=== PATIENT | female | born 1950 | race Two or more races ===

== ENCOUNTER → 2019-05-18 | Emergency (ER) | payer OTHER ==
[~2019-05-18] VITALS: Ht 165.1 cm; Wt 108.9 kg
[~2019-05-18] MED LIST: AMLO10TA13 PO; ASPI-231 PO; ATOR10TA52 PO; FAM20T PO; FENO160T8 PO; GABA-339 PO; HYDR-4833 PO; INSLISPI SC; LEVO75TA50 PO; LISI40TA PO; METF-372 PO
[2019-05-18 04:01] LABS: Basophils # (auto) 0.1 10 ^3/uL (0-0.2); Basophils % (auto) 0.6 % (0.0-2.0); Eosinophils # (auto) 0.3 10 ^3/uL (0-0.8); Eosinophils % (auto) 2.5 % (0.0-7.0); Hematocrit 41.3 % (36.0-46.0); Hemoglobin 13.9 g/dL (12.2-16.2); Lymphocytes # (auto) 1.7 10 ^3/uL (0.4-5.4); Lymphocytes % (auto) 17.2 % (10.0-50.0); Mean Corpuscular Hemoglobin 29.6 pg (28.0-32.0); Mean Corpuscular Hgb Conc. 33.7 g/dL (32.0-36.0); Monocytes # (auto) 0.8 10 ^3/uL (0-1.3); Monocytes % (auto) 7.7 % (0.0-12.0); Neutrophils # (auto) 7.3 10 ^3/uL (1.6-8.6); Platelet Count (auto) 264 10^3/uL (140-450); Red Blood Cells 4.69 10^6/uL (4.0-5.20); Red Cell Distribution Width 14.6 % (11.8-14.3); White Blood Cell 10.1 10^3/uL (4.4-10.8)
[2019-05-18 04:17] LABS: INR 1.01 (0.9-1.15); Partial Thromboplastin Time 27.9 sec (23.64-32.05)
[2019-05-18 04:18] LABS: Albumin 3.3 g/dL (3.4-5.0); Anion Gap 5 (5-15); Blood Urea Nitrogen 19 mg/dL (7-18); Calcium 8.9 mg/dL (8.5-10.1); Carbon Dioxide 25 mmol/L (21-32); Chloride 108 mmol/L (98-107); Glucose 228 mg/dL (74-106); Magnesium 1.5 mg/dL (1.6-2.6); Potassium 4.1 mmol/L (3.5-5.1); Sodium 138 mmol/L (136-145)
[2019-05-18 04:20] LABS: BUN/Creatinine Ratio 28.8; GFR African American 115 mL/min; GFR Non-African American 95 mL/min
[2019-05-18 04:25] LABS: Alanine Aminotransferase 47 U/L (13-56); Alkaline Phosphatase 97 U/L (45-117); Aspartate Aminotransferase 32 U/L (15-37); Bilirubin, Total 0.3 mg/dL (0.2-1.0); Total Protein 7.1 g/dL (6.4-8.2)
[2019-05-18 04:43] LABS: Urine Bacteria FEW /hpf (None Seen); Urine Blood Negative /uL (Negative); Urine Specific Gravity 1.012 (1.001-1.035); Urine WBC 9 /hpf (0 - 5)
[2019-05-18 05:34] VITALS: BP 158/78
== END | disposition home or self-care (01) ==
LOC: ER 02:35
DX: I10 Essential (primary) hypertension (principal); E11.65 Type 2 diabetes mellitus with hyperglycemia; R00.2 Palpitations; R42 Dizziness and giddiness; Z98.61 Coronary angioplasty status; Z90.49 Acquired absence of other specified parts of digestive tract; Z88.6 Allergy status to analgesic agent; Z79.899 Other long term (current) drug therapy; Z79.82 Long term (current) use of aspirin; Z79.4 Long term (current) use of insulin
CPT/HCPCS: 36415; 71045; 80053; 81001; 83735; 83880; 84443; 84484; 85025; 85379; 85610; 85730; 93005

== ENCOUNTER 2019-07-06 06:04 | Inpatient (IN) | payer OTHER ==
[~2019-07-06] VITALS: Ht 154.9 cm; Wt 110.6 kg
[2019-07-06] MEDS ORDERED: DOPamine 1600MCG/ML D5W 250 ML IV ONE (06:16)
[2019-07-06 06:49] LABS: Basophils # (auto) 0.1 10 ^3/uL (0-0.2); Basophils % (auto) 0.5 % (0.0-2.0); Eosinophils # (auto) 0.3 10 ^3/uL (0-0.8); Eosinophils % (auto) 1.8 % (0.0-7.0); Hematocrit 41.4 % (36.0-46.0); Hemoglobin 13.9 g/dL (12.2-16.2); Lymphocytes # (auto) 2.8 10 ^3/uL (0.4-5.4); Lymphocytes % (auto) 19.3 % (10.0-50.0); Mean Corpuscular Hemoglobin 29.7 pg (28.0-32.0); Mean Corpuscular Hgb Conc. 33.5 g/dL (32.0-36.0); Mean Corpuscular Volume 88.6 fL (80.0-100.0); Monocytes # (auto) 1.1 10 ^3/uL (0-1.3); Monocytes % (auto) 7.7 % (0.0-12.0); Neutrophils # (auto) 10.1 10 ^3/uL (1.6-8.6); Neutrophils % (auto) 70.7 % (37.0-80.0); Nucleated Red Blood Cells % 0.1 %; Platelet Count (auto) 266 10^3/uL (140-450); Red Blood Cells 4.67 10^6/uL (4.0-5.20); Red Cell Distribution Width 14.4 % (11.8-14.3); White Blood Cell 14.3 10^3/uL (4.4-10.8)
[2019-07-06 06:58] LABS: Albumin 3.4 g/dL (3.4-5.0); Anion Gap 10 (5-15); Blood Urea Nitrogen 28 mg/dL (7-18); Calcium 8.5 mg/dL (8.5-10.1); Carbon Dioxide 20 mmol/L (21-32); Chloride 112 mmol/L (98-107); Glucose 322 mg/dL (74-106); Magnesium 1.9 mg/dL (1.6-2.6); Potassium 3.5 mmol/L (3.5-5.1); Sodium 142 mmol/L (136-145)
[2019-07-06 07:02] LABS: INR 1.03 (0.9-1.15); Partial Thromboplastin Time 24.9 sec (23.64-32.05)
[2019-07-06 07:04] LABS: Alanine Aminotransferase 42 U/L (13-56); Alkaline Phosphatase 93 U/L (45-117); Aspartate Aminotransferase 36 U/L (15-37); BUN/Creatinine Ratio 26.7; Bilirubin, Total 0.3 mg/dL (0.2-1.0); GFR African American 67 mL/min; GFR Non-African American 56 mL/min; Total Protein 6.9 g/dL (6.4-8.2)
[2019-07-06] MEDS ORDERED: ONDANSETRON HCL 4 MG/2 ML VIAL ONE (07:13)
[2019-07-06] MEDS ORDERED: ONDANSETRON HCL 4 MG/2 ML VIAL IV ONE (07:15)
[2019-07-06] MEDS: DOPamine 1600MCG/ML D5W 250 ML IV SCH ×2 (07:30→18:35)
[2019-07-06] MEDS ORDERED: cefTRIAXone 1GM/50ML D5W 50 ML IV ONE (07:45)
[2019-07-06] MEDS ORDERED: AZITHROMYCIN 500MG/ 250ML 250 ML IV ONE (07:45)
[2019-07-06] MEDS ORDERED: LORazepam 2MG/ML-1ML VIAL IV ONE (08:30)
[2019-07-06] MEDS ORDERED: NITROGLYCERIN 0.4 MG SL TAB SL PRN (10:45)
[2019-07-06] MEDS ORDERED: TEMAZEPAM 15 MG CAP PO PRN (11:00)
[2019-07-06] MEDS ORDERED: DEXTROSE (50%) 50ML SYRG IV PRN (11:00)
[2019-07-06] MEDS ORDERED: PROMETHAZINE HCL 25 MG/ML 1ML IV PRN (11:00)
[2019-07-06] MEDS: ACCU-CHEK COMFORT CURVE STRIP VI SCH ×3 (11:24→20:02)
[2019-07-06] MEDS: InsuLIN REG 1unit/0.01ml Soln (100units/ml) SC SCH ×3 (11:34→20:48)
[2019-07-06] MEDS: GABAPENTIN 300 MG CAP PO SCH ×2 (11:35→22:13)
[2019-07-06] MEDS ORDERED: ATORVASTATIN 20 MG TAB PO SCH (22:00)
[2019-07-06] MEDS: FAMOTIDINE 20 MG TAB PO SCH (22:13)
[2019-07-06] MEDS: traMADol HCL 50 MG TAB PO PRN (22:14)
[2019-07-06] MEDS: INSULIN LANTUS (GLARGINE) 1 /0.01ml (100units/ml) SC SCH (22:18)
[2019-07-07] VITALS (57 sets, daily range): BP systolic 105–191; BP diastolic 46–84
[2019-07-07] MEDS: ACCU-CHEK COMFORT CURVE STRIP VI SCH ×6 (00:15→21:44)
[2019-07-07] MEDS: MORPHINE SULF INJ 2 MG/ML SYRINGE 1ML IV PRN ×2 (00:33→21:46)
[2019-07-07] MEDS: ACETAMINOPHEN 500 MG TAB PO PRN ×2 (02:10)
[2019-07-07] MEDS: DOPamine 1600MCG/ML D5W 250 ML IV SCH (02:12)
[2019-07-07] MEDS: InsuLIN REG 1unit/0.01ml Soln (100units/ml) SC SCH ×6 (04:00→22:00)
[2019-07-07 04:04] LABS: Basophils # (auto) 0.1 10 ^3/uL (0-0.2); Basophils % (auto) 0.4 % (0.0-2.0); Eosinophils # (auto) 0.2 10 ^3/uL (0-0.8); Eosinophils % (auto) 1.2 % (0.0-7.0); Hematocrit 41.4 % (36.0-46.0); Hemoglobin 13.6 g/dL (12.2-16.2); Lymphocytes # (auto) 1.6 10 ^3/uL (0.4-5.4); Lymphocytes % (auto) 10.9 % (10.0-50.0); Mean Corpuscular Hgb Conc. 32.8 g/dL (32.0-36.0); Mean Corpuscular Volume 88.5 fL (80.0-100.0); Monocytes # (auto) 1.3 10 ^3/uL (0-1.3); Monocytes % (auto) 8.9 % (0.0-12.0); Neutrophils # (auto) 11.5 10 ^3/uL (1.6-8.6); Neutrophils % (auto) 78.6 % (37.0-80.0); Platelet Count (auto) 288 10^3/uL (140-450); Red Blood Cells 4.67 10^6/uL (4.0-5.20); Red Cell Distribution Width 14.6 % (11.8-14.3); White Blood Cell 14.6 10^3/uL (4.4-10.8)
[2019-07-07 04:22] LABS: Calcium 8.5 mg/dL (8.5-10.1); Potassium 3.7 mmol/L (3.5-5.1)
[2019-07-07 04:28] LABS: Albumin 3.3 g/dL (3.4-5.0); Bilirubin, Total 0.8 mg/dL (0.2-1.0); Total Protein 6.8 g/dL (6.4-8.2)
[2019-07-07 04:29] LABS: INR 1.09 (0.9-1.15); Partial Thromboplastin Time 28.5 sec (23.64-32.05)
[2019-07-07] MEDS: LEVOTHYROXINE SODIUM 25 MCG TAB PO SCH (08:23)
[2019-07-07] MEDS: INSULIN LANTUS (GLARGINE) 1 /0.01ml (100units/ml) SC SCH ×2 (09:10→22:00)
[2019-07-07] MEDS ORDERED: CLOP75TA28 PO (09:32)
[2019-07-07] MEDS: ENOXAPARIN SOD 40 MG/0.4 ML SYRINGE SC SCH (09:51)
[2019-07-07] MEDS: GABAPENTIN 300 MG CAP PO SCH ×2 (09:56→21:44)
[2019-07-07] MEDS: FAMOTIDINE 20 MG TAB PO SCH ×2 (09:56→21:44)
[2019-07-07] MEDS ORDERED: Fenofibrate 160MG TABLET PO SCH (10:00)
[2019-07-07] MEDS ORDERED: CLOPIDOGREL BISULFATE 75 MG TAB PO ONE (10:15)
[2019-07-07] MEDS ORDERED: LIDOCAINE 2%HCL (LOCAL ANESTH.) INJ 20ML MDV ONE (12:42)
[2019-07-07] MEDS ORDERED: IODIXANOL 320MG/ML 100ML BTL IV ONE (12:42)
[2019-07-07] MEDS ORDERED: HEPARIN SODIUM (PORCINE) 5000 UNITS/ML 1ML VIAL ONE (12:59)
[2019-07-07] MEDS ORDERED: VERAPAMIL 2.5MG/ML INJ 2ML VIAL IV ONE (12:59)
[2019-07-07] MEDS ORDERED: MIDAZOLAM HCL 1MG/1ML-2 ML VIAL ONE (13:01)
[2019-07-07] MEDS ORDERED: ANGIOMAX 250 MG VIAL IV ONE (13:01)
[2019-07-07] MEDS ORDERED: SODIUM CHL 0.9% 50 ML ONE (13:01)
[2019-07-07] MEDS ORDERED: fentaNYL CITRATE 100 MCG/2 ML VL ONE (13:01)
[2019-07-07] MEDS ORDERED: ASPirin 81 mg TAB PO STA (15:15)
[2019-07-07] MEDS ORDERED: ASPirin 325 MG TAB PO STA (15:25)
[2019-07-07] MEDS ORDERED: HYDR-531 PO (17:11)
[2019-07-07] MEDS ORDERED: LISI-646 PO (17:11)
[2019-07-07] MEDS ORDERED: LEVEMIR SC (17:16)
[2019-07-07] MEDS ORDERED: ERGO1CAP6 PO (17:17)
[2019-07-07] MEDS ORDERED: SEMA2INJ SC (17:26)
[2019-07-07] MEDS: traMADol HCL 50 MG TAB PO PRN (17:44)
[2019-07-07] MEDS: ATORVASTATIN 20 MG TAB PO SCH (21:43)
[2019-07-07] MEDS: DOXYCYCLINE 100MG/250ML 250 ML IV SCH (22:42)
[2019-07-08] VITALS: BP 118/52
[2019-07-08 04:00] VITALS: BP 111/56
[2019-07-08] MEDS: InsuLIN REG 1unit/0.01ml Soln (100units/ml) SC SCH ×4 (06:30→21:21)
[2019-07-08] MEDS: INSULIN LANTUS (GLARGINE) 1 /0.01ml (100units/ml) SC SCH ×2 (06:36→21:22)
[2019-07-08] MEDS: ACCU-CHEK COMFORT CURVE STRIP VI SCH ×4 (06:45→20:49)
[2019-07-08] MEDS: LEVOTHYROXINE SODIUM 25 MCG TAB PO SCH (06:45)
[2019-07-08 08:15] VITALS: BP 140/75
[2019-07-08 09:14] LABS: Urine Bacteria NONE SEEN /hpf (None Seen); Urine Blood 2+ /uL (Negative); Urine Budding Yeast MODERATE /hpf (None Seen); Urine Mucus FEW (None Seen); Urine Specific Gravity 1.026 (1.001-1.035); Urine WBC 194 /hpf (0 - 5)
[2019-07-08] MEDS: GABAPENTIN 300 MG CAP PO SCH ×2 (09:31→20:49)
[2019-07-08] MEDS: RANOLAZINE ER 500 MG TAB PO SCH ×2 (09:32→20:49)
[2019-07-08] MEDS: ENOXAPARIN SOD 40 MG/0.4 ML SYRINGE SC SCH (09:32)
[2019-07-08] MEDS: FAMOTIDINE 20 MG TAB PO SCH ×2 (09:32→20:49)
[2019-07-08] MEDS ORDERED: CLOPIDOGREL BISULFATE 75 MG TAB PO SCH (10:00)
[2019-07-08] MEDS ORDERED: ASPirin 81 mg TAB PO SCH (10:00)
[2019-07-08] MEDS: DOXYCYCLINE 100MG/250ML 250 ML IV SCH ×2 (12:14→20:50)
[2019-07-08 12:15] VITALS: BP 137/66
[2019-07-08 16:10] VITALS: BP 144/65
[2019-07-08 20:00] VITALS: BP 153/62
[2019-07-08] MEDS: ATORVASTATIN 20 MG TAB PO SCH (20:49)
[2019-07-08] MEDS: MORPHINE SULF INJ 2 MG/ML SYRINGE 1ML IV PRN (21:36)
[2019-07-09] VITALS: BP 117/49
[2019-07-09 04:00] VITALS: BP 98/62
== END 2019-07-09 04:58 | disposition short-term general hospital (02) | DRG 246 ==
LOC: ER 06:04 → EDBD 06:04 → TELE 06:05 → ICU WEST 23:47 → DOU IN ICU 07-07 18:42
PROVIDERS: ADMIT Internal Medicine; ATTEND Internal Medicine
PROC: 02HV33Z Insertion of Infusion Device into Superior Vena Cava, Percutaneous Approach (ICD-10-PCS; 2019-07-06)
PROC: 027035Z Dilation of Coronary Artery, One Artery with Two Drug-eluting Intraluminal Devices, Percutaneous Approach (ICD-10-PCS; principal; 2019-07-07)
PROC: 4A033BC Measurement of Arterial Pressure, Coronary, Percutaneous Approach (ICD-10-PCS; 2019-07-07)
PROC: 4A023N7 Measurement of Cardiac Sampling and Pressure, Left Heart, Percutaneous Approach (ICD-10-PCS; 2019-07-07)
PROC: B2111ZZ Fluoroscopy of Multiple Coronary Arteries using Low Osmolar Contrast (ICD-10-PCS; 2019-07-07)
PROC: B2151ZZ Fluoroscopy of Left Heart using Low Osmolar Contrast (ICD-10-PCS; 2019-07-07)
DX: I21.4 Non-ST elevation (NSTEMI) myocardial infarction (principal); J18.9 Pneumonia, unspecified organism; I44.2 Atrioventricular block, complete; Z68.42 Body mass index [BMI] 45.0-49.9, adult; R00.1 Bradycardia, unspecified; E66.01 Morbid (severe) obesity due to excess calories; E03.9 Hypothyroidism, unspecified; E11.65 Type 2 diabetes mellitus with hyperglycemia; E78.5 Hyperlipidemia, unspecified; I11.9 Hypertensive heart disease without heart failure; I25.10 Atherosclerotic heart disease of native coronary artery without angina pectoris; R55 Syncope and collapse; I44.7 Left bundle-branch block, unspecified; D72.829 Elevated white blood cell count, unspecified; E11.42 Type 2 diabetes mellitus with diabetic polyneuropathy; K21.9 Gastro-esophageal reflux disease without esophagitis; M81.0 Age-related osteoporosis without current pathological fracture; Z79.4 Long term (current) use of insulin; Z80.9 Family history of malignant neoplasm, unspecified; Z82.49 Family history of ischemic heart disease and other diseases of the circulatory system; Z83.3 Family history of diabetes mellitus; Z82.62 Family history of osteoporosis; Z95.0 Presence of cardiac pacemaker; Z95.5 Presence of coronary angioplasty implant and graft; Z03.818 Encounter for observation for suspected exposure to other biological agents ruled out
CPT/HCPCS: 36415; 36556; 71045; 80053; 81001; 82550; 82962; 83036; 83605; 83735; 83880; 84443; 84484; 85025; 85379; 85610; 85652; 85730; 86141; 87040; 87081; 87804; 87880; 92928; 92929; 93005; 93458; 93571; 96365; 96366; 96368; 96375; 99152; 99153; 99291; C1751; C1874; G0378; J0696; J1815; J2250; J2405; J3490; Q9967